=== PATIENT | male | born 1980 | race Caucasian/White ===

== ENCOUNTER 2016-10-29 20:10 | Emergency (ER) | payer OTHER ==
[~2016-10-29] VITALS: Ht 177.8 cm; Wt 75.7 kg
[~2016-10-29 20:10] MED LIST: AMOXICILLIN875 MG PO; BENTYL20 MG PO; CIPRO500 MG PO; CLONIDINE HCL0.2 MG PO; LEVAQUIN750 MG PO; LIBRIUM25 MG PO; NAPROSYN500 MG PO; OMEPRAZOLE20 MG PO; PERCOCET 5/31 TABLET PO; PRILOSEC20 MG PO; SUBOXONE 8 MG-1 EAC2 SL; ULTRACET1 TABLET PO; ULTRAM50 MG PO; ZOFRAN ODT4 MG PO
[2016-10-29] MEDS ORDERED: BACTRIM,SEPT1 TABLET PO (20:32)
[2016-10-29 20:39] VITALS: BP 135/73
== END 2016-10-29 20:34 | disposition left against medical advice (07) ==
LOC: EME 20:10
DX: L02.415 Cutaneous abscess of right lower limb (principal); W57.XXXA Bitten or stung by nonvenomous insect and other nonvenomous arthropods, initial encounter
CPT/HCPCS: 99281; 99283

== ENCOUNTER 2017-04-08 16:29 | Emergency (ER) | payer OTHER ==
[~2017-04-08] VITALS: Ht 177.8 cm; Wt 77.5 kg
[~2017-04-08 16:29] MED LIST changes: +BACTRIM,SEPT1 TABLET PO
[2017-04-08] MEDS ORDERED: VENTOLIN HFA18 GM IH (19:25)
[2017-04-08] MEDS ORDERED: NAPROSYN500 MG PO (19:25)
[2017-04-08] MEDS ORDERED: PREDNISONE10 M1 PO (19:25)
[2017-04-08 19:35] VITALS: BP 138/82
== END 2017-04-08 19:36 | disposition home or self-care (01) ==
LOC: EME 16:29 → RME 16:29
DX: M70.21 Olecranon bursitis, right elbow (principal); J44.9 Chronic obstructive pulmonary disease, unspecified; F17.210 Nicotine dependence, cigarettes, uncomplicated
CPT/HCPCS: 73080

== ENCOUNTER 2017-12-03 17:02 | Emergency (ER) | payer OTHER ==
[~2017-12-03] VITALS: Ht 177.8 cm; Wt 66.2 kg
[~2017-12-03 17:02] MED LIST changes: +PREDNISONE10 M1 PO; +VENTOLIN HFA18 GM IH
[2017-12-03 17:49] LABS: HEMATOCRIT 41.1 % (38.0-50.0); MCH 32.8 PG (29.0-34.0); MCHC 36.5 G/DL (30.0-36.0); MCV 89.7 FL (86-99); PLATELET COUNT 298 K/uL (156-360); RBC DIS.WIDTH-CV 12.7 % (11.8-14.6); RBC DIS.WIDTH-SD 41.7 % (39-53); RED BLOOD COUNT 4.58 M/uL (4.00-5.50); WHITE BLOOD COUNT 12.4 K/uL (4.1-10.2)
[2017-12-03 17:58] LABS: AMPHETAMINE NEGATIVE (500 ng/mL); BARBITURATES NEGATIVE (200 ng/mL); BENZODIAZEPINES NEGATIVE (150 ng/mL); BUPRENORPHINE NEGATIVE (10 ng/mL); COCAINE NEGATIVE (150 ng/mL); METHADONE PRESUMPTIVE POSITIVE (200 ng/mL); METHAMPHETAMINE NEGATIVE (500 ng/mL); OPIATES (MORPHINE) NEGATIVE (100 ng/mL); OXYCODONE NEGATIVE (100 ng/mL); PHENCYCLIDINE NEGATIVE (25 ng/mL); PROPOXYPHENE NEGATIVE (300 ng/mL); THC CANNABINOIDS PRESUMPTIVE POSITIVE (50 ng/mL); TRICYCLIC ANTIDEPRESSANTS NEGATIVE (300 ng/mL)
[2017-12-03 18:00] LABS: CHLORIDE 103 mEq/L (99-109); POTASSIUM 3.3 mEq/L (3.7-5.4); SODIUM 142 mEq/L (136-147)
[2017-12-03 18:02] LABS: GLUCOSE 107 mg/dL (70-99)
[2017-12-03 18:06] LABS: CREATININE 0.9 mg/dL (0.6-1.3); GFR ESTIMATE (CALCULATED) > 59 mL/min/ (58.99-99999); SERUM ETHYL ALCOHOL 327 mg/dL
[2017-12-03 18:07] LABS: UREA NITROGEN (BUN) 7 mg/dL (9-23)
[2017-12-04] MEDS ORDERED: IBU600 MG PO (03:43)
[2017-12-04 04:16] VITALS: BP 137/78
== END 2017-12-04 04:17 | disposition home or self-care (01) ==
LOC: EME 17:02
DX: F10.129 Alcohol abuse with intoxication, unspecified (principal); Y90.8 Blood alcohol level of 240 mg/100 ml or more; F32.9 Major depressive disorder, single episode, unspecified; R45.851 Suicidal ideations; F17.200 Nicotine dependence, unspecified, uncomplicated; Z79.891 Long term (current) use of opiate analgesic
CPT/HCPCS: 80048; 84999; 85027; 90839; 99281; 99284; G0480; J1885